=== PATIENT | female | born 1965 | race African-American/Black ===

== ENCOUNTER 2025-08-06 19:08 | Inpatient (IN) | payer MEDICAID, OTHER ==
[~2025-08-06] VITALS: Ht 170.2 cm; Wt 67.1 kg
[2025-08-06 19:11] VITALS: O2SAT 98
[2025-08-06 20:23] LABS: BASOPHILS % 0.4 % (0.0-2.0); EOSINOPHILS % 1.5 % (0.0-5.0); HEMATOCRIT. 43.8 % (36.0-48.0); HEMOGLOBIN. 13.6 g/dL (12.0-16.0); LYMPHOCYTES % 18.7 % (20.0-50.0); MEAN PLATELET VOLUME 9.4 fl (7.4-10.4); MONOCYTES % 6.9 % (2.0-8.0); NEUTROPHILS % 72.5 % (40.0-76.0); PLATELET 297 x1000/uL (130-400); RED BLOOD CELL COUNT 5.01 mill/uL (4.2-5.4); RED CELL DISTRIBUTION WIDTH 14.7 % (11.6-14.6)
[2025-08-06 20:38] LABS: CREATININE 0.7 mg/dL (0.6-1.0)
[2025-08-06 20:39] LABS: PROTEIN TOTAL 5.4 g/dL (6.0-8.3); UREA NITROGEN BLOOD 12 mg/dL (9-23)
[2025-08-06 20:40] LABS: ASPARTATE AMINOTRANSFERASE 110 IU/L (<34); TROPONIN I HIGH SENSITIVITY < 4 ng/L (3.0-34)
[2025-08-06 20:41] LABS: BILIRUBIN DIRECT < 0.1 mg/dL (<=3.0); BILIRUBIN TOTAL 0.2 mg/dL (0.1-1.0)
[2025-08-06 23:28] LABS: TROPONIN I HIGH SENSITIVITY 13 ng/L (3.0-34)
[2025-08-06 23:59] VITALS: BP 118/50; PULSE 73; RESP 18; TEMP 36.2512
[2025-08-07] VITALS: BP 118/50; PULSE 73; RESP 18; TEMP 36.2; O2SAT 99
[2025-08-07] MEDS ORDERED: DEXTROSE 50% WATER 50ML SYRINGE IV PRN (03:00)
[2025-08-07] MEDS ORDERED: TRAZODONE HCL 50MG TABLET PO PRN (03:00)
[2025-08-07] MEDS ORDERED: PROT20 PO (03:21)
[2025-08-07] MEDS ORDERED: VARE1TAB24 (03:21)
[2025-08-07] MEDS ORDERED: METO25TA6 PO (03:21)
[2025-08-07] MEDS ORDERED: METO-396 PO (03:21)
[2025-08-07] MEDS ORDERED: ATOR-2 MT (03:21)
[2025-08-07] MEDS ORDERED: INSU100I28 SQ (03:21)
[2025-08-07] MEDS ORDERED: GLIP10TA17 MT (03:21)
[2025-08-07] MEDS ORDERED: ASPI-1497 PO (03:25)
[2025-08-07] MEDS ORDERED: TRAZ-252 PO (03:25)
[2025-08-07] MEDS ORDERED: EFEX1 PO (03:25)
[2025-08-07 04:00] VITALS: BP 115/58; PULSE 72; RESP 19; TEMP 36.9; O2SAT 100
[2025-08-07 06:33] LABS: BASOPHILS % 0.4 % (0.0-2.0); EOSINOPHILS % 2.3 % (0.0-5.0); HEMATOCRIT. 40.4 % (36.0-48.0); HEMOGLOBIN. 12.8 g/dL (12.0-16.0); LYMPHOCYTES % 25.1 % (20.0-50.0); MEAN PLATELET VOLUME 9.5 fl (7.4-10.4); MONOCYTES % 8.3 % (2.0-8.0); NEUTROPHILS % 63.9 % (40.0-76.0); PLATELET 265 x1000/uL (130-400); RED BLOOD CELL COUNT 4.69 mill/uL (4.2-5.4); RED CELL DISTRIBUTION WIDTH 14.3 % (11.6-14.6)
[2025-08-07] MEDS: BLOOD SUGAR DIAGNOSTIC STRIP TEST SCH (06:50)
[2025-08-07] MEDS: INSULIN LISPRO 100 UNITS/ML SUBCUT SCH (06:50)
[2025-08-07] MEDS: PANTOPRAZOLE 40MG DR TABLET PO SCH (06:50)
[2025-08-07 06:52] LABS: TRIGLYCERIDE 62.0 mg/dL (0-150)
[2025-08-07 06:53] LABS: LDL CHOLESTEROL 54.0 mg/dL (5-100)
[2025-08-07 07:17] LABS: CREATININE 0.6 mg/dL (0.6-1.0)
[2025-08-07 07:18] LABS: UREA NITROGEN BLOOD 11 mg/dL (9-23)
[2025-08-07 08:00] VITALS: BP 122/60; PULSE 78; RESP 19; TEMP 36.7; O2SAT 99
[2025-08-07] MEDS: INSULIN GLARGINE 100 UNITS/ML SUBCUT SCH (10:39)
[2025-08-07] MEDS: ENOXAPARIN 40MG/0.4ML SYR SUBCUT SCH (10:40)
[2025-08-07] MEDS: VENLAFAXINE HCL 37.5MG SR CAPSULE 24HR PO SCH (10:41)
[2025-08-07] MEDS: METOPROLOL TARTRATE 25MG TABLET PO SCH (10:41)
[2025-08-07] MEDS: ASPIRIN 81MG TABLET PO SCH (10:41)
[2025-08-07 12:00] VITALS: BP 120/75; PULSE 72; RESP 19; TEMP 36.4; O2SAT 99
[2025-08-07 16:00] VITALS: BP 124/68; PULSE 70; RESP 18; TEMP 36.3; O2SAT 100
[2025-08-07 20:00] VITALS: BP 123/60; PULSE 63; RESP 18; TEMP 36.4; O2SAT 99
[2025-08-07] MEDS: ATORVASTATIN CALCIUM 40MG TABLET PO SCH (21:26)
[2025-08-07] MEDS: ACETAMINOPHEN 325MG TABLET PO PRN (21:27)
[2025-08-07 23:50] LABS: CLARITY URINE CLEAR (CLEAR); COLOR URINE YELLOW (YELLOW); GLUCOSE URINE NEGATIVE (NEGATIVE); KETONES URINE NEGATIVE (NEGATIVE); LEUKOCYTE ESTERASE URINE 2+ (NEGATIVE); NITRITE URINE NEGATIVE (NEGATIVE); OCCULT BLOOD URINE NEGATIVE (NEGATIVE); PH URINE 6.5 (4.5-8.0); PROTEIN URINE NEGATIVE (NEGATIVE); SPECIFIC GRAVITY URINE 1.008 (1.005-1.030); UROBILINOGEN URINE 0.2 E.U./dL (0.2-1.0)
[2025-08-08] VITALS: BP 121/60; PULSE 61; RESP 18; TEMP 36.4; O2SAT 99
[2025-08-08 01:57] LABS: BACTERIA URINE TRACE; RBC URINE 0-2 /hpf (0-2); SQUAMOUS EPITHELIAL CELL URINE FEW /lpf (RARE/1+); WBC URINE 0-2 /hpf (0-2)
[2025-08-08 04:00] VITALS: BP 113/63; PULSE 71; RESP 18; TEMP 36.3; O2SAT 99
[2025-08-08 07:06] LABS: PHOSPHORUS 4.4 mg/dL (2.5-4.9)
[2025-08-08 08:00] VITALS: BP 140/90; PULSE 72; RESP 18; TEMP 36.3; O2SAT 97
[2025-08-08 12:00] VITALS: BP 138/88; PULSE 66; RESP 18; TEMP 36.3; O2SAT 100
[2025-08-08] MEDS: MAGNESIUM OXIDE 400MG TABLET PO SCH (13:54)
[2025-08-09] MEDS ORDERED: MAGNESIUM OXIDE 400MG TABLET PO SCH (09:00)
== END 2025-08-08 14:00 | disposition left against medical advice (07) | DRG 74 ==
LOC: ER 19:08 → 8WST 21:34 → EDBEDREQTM 23:33 → EDBEDREQ 23:33 → ENRESERV 23:45
PROVIDERS: ADMIT Internal Medicine; ATTEND Internal Medicine
DX: G90.89 Other disorders of autonomic nervous system (principal); E11.65 Type 2 diabetes mellitus with hyperglycemia; I10 Essential (primary) hypertension; I25.10 Atherosclerotic heart disease of native coronary artery without angina pectoris; Z53.29 Procedure and treatment not carried out because of patient's decision for other reasons; Z79.4 Long term (current) use of insulin; Z79.84 Long term (current) use of oral hypoglycemic drugs; Z79.899 Other long term (current) drug therapy; Z88.2 Allergy status to sulfonamides; Z95.5 Presence of coronary angioplasty implant and graft
CPT/HCPCS: 36415; 71045; 80048; 80061; 80076; 81003; 82962; 83036; 83735; 83880; 84100; 84443; 84484; 85025; 93005; 93306; 99285; A6449; J1650; J1815